=== PATIENT | male | born 1960 | race Caucasian/White ===

== ENCOUNTER 2016-12-21 17:51 | Emergency (ER) | payer BC ==
[~2016-12-21] VITALS: Ht 185.4 cm; Wt 99.3 kg
[2016-12-21 18:44] LABS: BASO # 0.1 10*3/uL (0.0-0.1); BASO % 1.1 % (0.0-1.0); EOS # 0.3 10*3/uL (0.0-0.4); EOS % 6.2 % (1.0-4.0); HEMATOCRIT 35.9 % (42.0-52.0); HEMOGLOBIN 12.5 g/dl (14.0-18.0); LYMPH # 1.2 10*3/uL (1.3-4.4); LYMPH % 24.7 % (27.0-41.0); MEAN CELL VOLUME 90.9 fl (80.0-94.0); MEAN CORPUSCULAR HGB 31.6 pg (27.0-31.0); MEAN CORPUSCULAR HGB CONC 34.8 g/dl (33.0-37.0); MEAN PLATELET VOLUME 10.3 fl (9.6-12.3); MONO # 0.5 10*3/uL (0.1-1.0); MONO % 10.3 % (3.0-9.0); NEUT # 2.7 10*3/uL (2.3-7.9); NEUT % 57.5 % (47.0-73.0); PLATELET COUNT AUTOMATED 200 10*3/uL (130-400); RED BLOOD COUNT 3.95 10*6/uL (4.50-5.90); RED CELL DISTRI WIDTH 12.1 % (0-14.5); WHITE BLOOD COUNT 4.7 10*3/uL (4.8-10.8)
[2016-12-21 18:55] LABS: PROTHROMBIN TIME 10.7 SECONDS (9.0-12.4)
[2016-12-21 19:06] LABS: ALKALINE PHOSPHATASE 85 U/L (45-117); BILIRUBIN, TOTAL 0.5 mg/dl (0.2-1.0); BUN 45 mg/dl (7-24); CARBON DIOXIDE 21 mmol/L (21-32); CHLORIDE 111 mmol/L (98-107); CPK 284 U/L (39-308); EST GLOM FILT AFRICAN AMERICAN 50 ml/min; GLUCOSE 105 mg/dL (65-99); POTASSIUM 4.2 mmol/L (3.5-5.1); SGOT/AST 16 IU/L (3-35); SGPT/ALT 27 U/L (12-78); SODIUM 142 mmol/L (136-145); TOTAL PROTEIN 6.7 gm/dL (6.4-8.2); TROPONIN I 0.022 ng/ml (<0.045)
[2016-12-21 19:07] LABS: C-REACTIVE PROTEIN < 0.29 MG/DL (0-0.3)
[2016-12-21 19:09] LABS: CKMB 13.1 ng/ml (0.5-3.6); MAGNESIUM 0.9 mg/dL (1.5-2.1)
== END 2016-12-21 23:01 | disposition left against medical advice (07) ==
LOC: ED 17:51
PROVIDERS: Emergency Medicine
DX: I48.91 Unspecified atrial fibrillation (principal); F17.200 Nicotine dependence, unspecified, uncomplicated

== ENCOUNTER 2016-12-27 20:57 | Inpatient (IN) | payer BC ==
[~2016-12-27] VITALS: Ht 185.4 cm; Wt 99.4 kg
[2016-12-27] VITALS (10 sets, daily range): BP systolic 132–192; BP diastolic 90–120
--- NOTE | ~2016-12-27 | PR ---
[place], [place] PROGRESS NOTE NAME: PABLO SANCHEZ UNIT #: [id number] ROOM: 521 DOCTOR: ANTONY GARAY MD BIRTHDATE: [birth year] DOS: 12/30/2016 CARDIOLOGY PROGRESS NOTE SUBJECTIVE: The patient was seen at his bedside today on 12/30/2016 for followup of his newly documented atrial fibrillation with rapid ventricular response. He had no family at the bedside today. He tells me that he feels much better today and is very anxious to go home. We were able to get him off of IV diltiazem overnight, but I did have to start him on digoxin to maintain good heart rate control. This morning, his pulse is in the 70s-80s. His blood pressure is controlled at 120/60 and he is saturating 100% on pulse oximetry. PHYSICAL EXAMINATION: VITAL SIGNS: Today, his vital signs are as noted. NECK: Supple. He has no jugular distention. Carotids are full. I heard no bruits. LUNGS: Respirations are unlabored. His chest is clear to auscultation and percussion. He has no presacral edema. HEART: Has an irregularly irregular rhythm without murmurs or gallops. ABDOMEN: Benign. EXTREMITIES: Showed no edema. IMPRESSION: 1. Newly documented atrial fibrillation with rapid ventricular response. 2. CHADS-VASc score of 2 indicating high risk for future cardioembolic events and stroke without anticoagulation. 3. Essential hypertension. 4. Type 2 diabetes mellitus. 5. Hyperlipidemia. 6. Cigarette abuse. 7. Alcohol abuse. PLAN: I think the patient can go home on his current medications including diltiazem, digoxin and metoprolol as currently prescribed. He also will continue rivaroxaban for stroke prophylaxis. He may be able to wean off of clonidine over the next several weeks. I would like him to follow up with us in the office in about 3-4 weeks, and if he continues to be in atrial fibrillation, we probably will arrange for him to have an elective cardioversion at that time. I thank the hospitalist physicians for asking our advice regarding his care. [place], [place] PROGRESS NOTE NAME: PABLO SANCHEZ UNIT #: [id number] ROOM: 521 DOCTOR: ANTONY GARAY MD BIRTHDATE: [birth year] ANTONY GARAY MD CM:PNTRANS [id number] ANTONY GARAY MD 12/31/16 0147 interface
--- NOTE | ~2016-12-27 | PR ---
[place], [place] PROGRESS NOTE NAME: PABLO SANCHEZ [facility] #: [id number] UNIT #: [id number] ROOM: 521 DOCTOR: ANTONY GARAY MD BIRTHDATE: [birth year] DOS: 12/29/2016 SUBJECTIVE: The patient was seen at his bedside today is 12/29/2016, for followup of his newly documented atrial fibrillation with a rapid ventricular response. The patient has been placed on metoprolol 100 mg b.i.d., but still requires 15 mg of diltiazem per hour intravenously to maintain an adequate heart rate. He denies any chest pain or palpitations. He otherwise feels well and wants to go home. PHYSICAL EXAMINATION: VITAL SIGNS: Today, his pulse is 110 and irregularly irregular. Blood pressure is 114/70. He is afebrile. He weighs 99.4 kg and has a body mass index 28.9. NECK: Supple. He has no jugular distention. Carotids are full. I heard no bruits. He had no neck or supraclavicular masses. LUNGS: Respirations were unlabored. His chest was clear. HEART: Had an irregularly irregular rhythm, without murmurs or gallops. ABDOMEN: Benign. EXTREMITIES: Showed no edema. He did have an echocardiogram which showed normal left ventricular size, segmental wall motion and systolic function with moderate concentric left ventricular hypertrophy. Ejection fraction is 60-65%. Diastole could not be assessed. Left atrium was mildly dilated. There was no abnormality of valve function. IMPRESSION: 1. Newly documented atrial fibrillation with rapid ventricular response. 2. CHADS2-VASc score of 2 indicating high risk for future cardioembolic events and stroke without anticoagulation. 3. Essential hypertension. 4. Type 2 diabetes mellitus. 5. Hyperlipidemia. 6. Cigarette abuse. 7. Alcohol abuse. PLAN: We will continue to increase his medications as tolerated and try to wean him off of intravenous diltiazem. If his rate remains hard to control, he may require cardioversion. We will have to consider a stress myocardial perfusion study in the future as well because of his complaints of chest pain; however, would rather not do that while we are still adjusting his medications. He is tolerating anticoagulation therapy. I thank the hospitalist physicians for asking our advice regarding his care. [place], [place] PROGRESS NOTE NAME: PABLO SANCHEZ UNIT #: [id number] ROOM: 521 DOCTOR: ANTONY GARAY MD BIRTHDATE: [birth year] ANTONY GARAY MD CM:PNTRANS [id number] [phone] ANTONY GARAY MD 12/29/162131 interface
--- NOTE | ~2016-12-27 | CON ---
[place], [place] REPORT OF CONSULTATION [id number] UNIT #: [id number] ROOM: [facility] DOCTOR: ANTONY GARAY MD BIRTHDATE: [birth year] DOS: 12/28/2016 REASON FOR CONSULTATION: Rapid irregular heartbeat. HISTORY OF PRESENT ILLNESS: The patient is a 56-year-old man who does have multiple medical problems including hypertension, diabetes and hyperlipidemia. He also smokes half pack of cigarettes a day and drinks alcohol on a daily basis. He states that he has had episodes of irregular heartbeat for at least a few years. He has worn monitors in the past which have been unremarkable. He was seen about a week ago by his primary physician, Dr. Szymanski, who noted that his heart was irregular and an EKG did show that he was in atrial fibrillation. He sent him to the Emergency Room where he was evaluated, but signed out against medical advice. He has continued to have symptoms of palpitations; however, associated with nausea, vomiting and chest discomfort. He therefore came to the Emergency Room and was admitted. Since he has been here, he has demonstrated atrial fibrillation with a rapid ventricular response, which has been responding to intravenous diltiazem and oral beta blockers. His troponin levels have been unremarkable. His electrocardiogram only shows atrial fibrillation and nonspecific ST and T-wave changes. PAST MEDICAL HISTORY: 1. Hypertension, which has been present over 10 years. 2. Type 2 diabetes mellitus. 3. Hyperlipidemia. 4. Daily alcohol use. 5. Cigarette abuse. 6. No previous history of myocardial infarction or stroke. MEDICATIONS: Prior to admission included atorvastatin 20 mg daily, clonidine 0.1 mg 3 times a day, glyburide 10 mg b.i.d., hydrochlorothiazide 50 mg daily, labetalol 300 mg b.i.d., omeprazole 20 mg daily, Pioglitazone 15 mg daily, Sitagliptin with metformin (Janumet) 1000/5 one tablet b.i.d., and verapamil 120 mg daily. ALLERGIES: He has no known drug allergies. FAMILY HISTORY: Positive for atherosclerotic heart disease in his father who had a 4-vessel bypass. REVIEW OF SYSTEMS: The patient denies diplopia or loss of vision. He denies focal weakness. He denies lightheadedness or syncope. Denies orthopnea or PND. Denies fevers, chills, sweats or recent weight change. He denies focal weakness. He has had some nausea and vomiting, but denies hemoptysis or hematemesis. He denies any change in bowel or bladder habits and denies blood in his stool or urine. He denies any skin rashes. He denies any peripheral edema. He denies any hot or swollen joints. He denies polydipsia or polyuria. The remainder of the review of systems is negative except as noted above. SOCIAL HISTORY: The patient is and lives with his . He does smoke half pack of cigarettes a day and drinks several beers on a daily basis. 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 PHYSICAL EXAMINATION: GENERAL: The patient is a well-nourished white male who is awake, alert and oriented. VITAL SIGNS: Pulse is 112 and irregularly irregular. Blood pressure is 134/87. He is afebrile. He weighs 99.4 kilograms with a body mass index 28.9. HEENT: Normocephalic, atraumatic. Extraocular muscles are intact. Sclerae are clear. Pupils are round and reactive to light. The oral mucosa is moist. Tongue is midline. NECK: Supple. He has no jugular distention. Carotids are full. I heard no bruits. He had no neck or supraclavicular masses. No thyromegaly. LUNGS: Respirations are unlabored. His chest is clear to auscultation and percussion. He has no presacral edema or chest wall tenderness. CARDIOVASCULAR: His heart has an irregularly irregular rhythm without murmurs, rubs or gallops. PMI is not displaced. He has no precordial heave, lift or thrill. ABDOMEN: Soft and normally active without masses, organomegaly or bruits. EXTREMITIES: Showed no edema. Peripheral pulses are palpable in the feet. LABORATORY DATA: Electrocardiogram shows atrial fibrillation with a rapid ventricular response. He has nonspecific ST and T-wave changes. TSH is normal. Hemoglobin is 12.3, hematocrit 35.9, white count 7700, platelet count 204,000. INR was 1.0. Sodium is 140, potassium 2.7, BUN 35, creatinine 1.47. Hemoglobin A1c 7.4. Troponin levels have been unremarkable. IMPRESSIONS: 1. Newly documented atrial fibrillation. 2. CHADS-VASc score 2 indicating high risk for future cardioembolic events and stroke without anticoagulation. 3. Essential hypertension. 4. Type 2 diabetes mellitus. 5. Hyperlipidemia. 6. Cigarette abuse. 7. Alcohol abuse. PLAN: The patient was told that he could not continue to consume alcohol since this would increase his bleeding risk and probably increase his risk for atrial fibrillation as well. We will be adjusting his medications to control his rate. After a few weeks if his rate remains hard to control, we can decide whether he should undergo a cardioversion. This may also help with symptoms if he does not convert spontaneously. He did present with some chest discomfort and therefore once his rate has been controlled. We will proceed with a stress myocardial perfusion study. Please see the orders for medications changes. I did discuss with him anticoagulation therapy. I think in the long run, he would do best we can keep him on a direct oral anticoagulant. I would start him on rivaroxaban. [place], [place] REPORT OF CONSULTATION NAME: PABLO SANCHEZ UNIT #: [id number] ROOM: [facility] DOCTOR: ANTONY GARAY MD BIRTHDATE: [birth year] I thank the hospitalist group for asking our advice regarding his management. ANTONY GARAY MD CM:CONSTR:REPORT OF CONSULTATION 1601 12/28/16 [id number] interface
[2016-12-27 21:14] LABS: BASO # 0.1 10*3/uL (0.0-0.1); BASO % 0.9 % (0.0-1.0); EOS # 0.4 10*3/uL (0.0-0.4); EOS % 5.1 % (1.0-4.0); HEMATOCRIT 35.9 % (42.0-52.0); HEMOGLOBIN 12.3 g/dl (14.0-18.0); LYMPH # 1.5 10*3/uL (1.3-4.4); MEAN CELL VOLUME 91.6 fl (80.0-94.0); MEAN CORPUSCULAR HGB 31.4 pg (27.0-31.0); MEAN CORPUSCULAR HGB CONC 34.3 g/dl (33.0-37.0); MONO # 0.7 10*3/uL (0.1-1.0); MONO % 9.1 % (3.0-9.0); NEUT % 65.5 % (47.0-73.0); PLATELET COUNT AUTOMATED 204 10*3/uL (130-400); RED BLOOD COUNT 3.92 10*6/uL (4.50-5.90); RED CELL DISTRI WIDTH 12.5 % (0-14.5); WHITE BLOOD COUNT 7.7 10*3/uL (4.8-10.8)
[2016-12-27 21:24] LABS: PROTHROMBIN TIME 10.7 SECONDS (9.0-12.4)
[2016-12-27 21:31] LABS: ALBUMIN 3.9 gm/dl (3.1-4.5); ALKALINE PHOSPHATASE 88 U/L (45-117); BILIRUBIN, TOTAL 0.6 mg/dl (0.2-1.0); BUN 45 mg/dl (7-24); CARBON DIOXIDE 22 mmol/L (21-32); CHLORIDE 110 mmol/L (98-107); EST GLOM FILT AFRICAN AMERICAN 39 ml/min; GLUCOSE 107 mg/dL (65-99); POTASSIUM 3.9 mmol/L (3.5-5.1); SGOT/AST 14 IU/L (3-35); SGPT/ALT 24 U/L (12-78); SODIUM 140 mmol/L (136-145); TOTAL PROTEIN 7.1 gm/dL (6.4-8.2)
[2016-12-27 21:32] LABS: TROPONIN I < 0.015 ng/ml (<0.045)
[2016-12-27] MEDS ORDERED: PIOGLITAZONE HC15 MG PO (22:46)
[2016-12-27] MEDS ORDERED: OMEPRAZOLE20 M2 PO (22:47)
[2016-12-27] MEDS ORDERED: VERAPAMIL HCL240 M2 PO (22:47)
[2016-12-27] MEDS ORDERED: LABETALOL HCL300 MG PO (22:48)
[2016-12-27] MEDS ORDERED: LIPITOR20 MG PO (22:48)
[2016-12-27 22:49] LABS: ABG BASE EXCESS -4.9 mmol/L (-2.0-2.0); ABG CO2 CONTENT 20.1 mmol/L (23-27); ABG HCO3 19.1 mmol/l (22-26); ARTERIAL BLOOD GAS PH 7.376 (7.35-7.45); ARTERIAL BLOOD GAS PO2 80.3 mmHg (80-90)
[2016-12-27] MEDS ORDERED: CATAPRES-TTS 10.1 MG PO (22:49)
[2016-12-27] MEDS ORDERED: GLYBURIDE5 MG PO (22:49)
[2016-12-27] MEDS ORDERED: HYDROCHLOROTHIA50 M1 PO (22:50)
[2016-12-27] MEDS ORDERED: JANUMET 1000 MG1 TA1 PO (22:50)
[2016-12-28] VITALS (12 sets, daily range): BP systolic 104–182; BP diastolic 65–114
[2016-12-28] MEDS ORDERED: CLONIDINE0.1 MG/21 PO (00:30)
[2016-12-28 03:15] LABS: POTASSIUM 3.7 mmol/L (3.5-5.1)
[2016-12-28 03:20] LABS: FREE T4 1.09 ng/dl (0.76-1.46)
[2016-12-28 03:23] LABS: HEMOGLOBIN A1c 7.4 % (4.8-5.6)
[2016-12-28 03:26] LABS: THYROID STIM HORMONE (HS) 1.7 uIU/ml (0.358-4.75)
[2016-12-29] VITALS (12 sets, daily range): BP systolic 109–153; BP diastolic 62–102
[2016-12-29 05:54] LABS: BASO % 0.7 % (0.0-1.0); EOS # 0.2 10*3/uL (0.0-0.4); EOS % 3.6 % (1.0-4.0); HEMATOCRIT 37.8 % (42.0-52.0); HEMOGLOBIN 13.4 g/dl (14.0-18.0); LYMPH # 0.9 10*3/uL (1.3-4.4); LYMPH % 14.9 % (27.0-41.0); MEAN CELL VOLUME 89.4 fl (80.0-94.0); MEAN CORPUSCULAR HGB 31.7 pg (27.0-31.0); MEAN CORPUSCULAR HGB CONC 35.4 g/dl (33.0-37.0); MEAN PLATELET VOLUME 10.3 fl (9.6-12.3); MONO # 0.6 10*3/uL (0.1-1.0); MONO % 10.6 % (3.0-9.0); PLATELET COUNT AUTOMATED 219 10*3/uL (130-400); RED BLOOD COUNT 4.23 10*6/uL (4.50-5.90); RED CELL DISTRI WIDTH 12.1 % (0-14.5); WHITE BLOOD COUNT 5.8 10*3/uL (4.8-10.8)
[2016-12-29 06:11] LABS: ALBUMIN 3.5 gm/dl (3.1-4.5); ALKALINE PHOSPHATASE 82 U/L (45-117); BILIRUBIN, TOTAL 1.2 mg/dl (0.2-1.0); BUN 20 mg/dl (7-24); CARBON DIOXIDE 25 mmol/L (21-32); CHLORIDE 103 mmol/L (98-107); EST GLOM FILT AFRICAN AMERICAN > 60 ml/min; GLUCOSE 191 mg/dL (65-99); POTASSIUM 3.6 mmol/L (3.5-5.1); SGOT/AST 11 IU/L (3-35); SGPT/ALT 19 U/L (12-78); SODIUM 138 mmol/L (136-145); TOTAL PROTEIN 6.4 gm/dL (6.4-8.2)
[2016-12-29] MEDS ORDERED: METOPROLOL SUC100 M1 PO (09:42)
[2016-12-29] MEDS ORDERED: XARE20MG PO (09:42)
[2016-12-29] MEDS ORDERED: HYDR25T PO (09:42)
[2016-12-30] VITALS: BP 147/88
[2016-12-30 08:00] VITALS: BP 170/96
[2016-12-30 12:00] VITALS: BP 119/61
[2016-12-30] MEDS ORDERED: LANOXIN250 MCG PO (15:53)
[2016-12-30] MEDS ORDERED: DILTIAZEM CD240 MG PO (15:53)
== END 2016-12-30 16:31 | disposition home or self-care (01) | DRG 193 ==
LOC: ED 20:57 → EDHOLD 22:37 → ICCU 22:37 → 5E 12-29 14:44
PROVIDERS: Emergency Medicine Emergency Medical Services; Family Medicine; Internal Medicine
DX: J18.9 Pneumonia, unspecified organism (principal); N17.0 Acute kidney failure with tubular necrosis; I48.91 Unspecified atrial fibrillation; K21.9 Gastro-esophageal reflux disease without esophagitis; E78.4 Other hyperlipidemia; M54.5 Low back pain; G89.29 Other chronic pain; R00.0 Tachycardia, unspecified; E78.00 Pure hypercholesterolemia, unspecified; E78.5 Hyperlipidemia, unspecified; F17.210 Nicotine dependence, cigarettes, uncomplicated; I12.9 Hypertensive chronic kidney disease with stage 1 through stage 4 chronic kidney disease, or unspecified chronic kidney disease; E11.22 Type 2 diabetes mellitus with diabetic chronic kidney disease; N18.9 Chronic kidney disease, unspecified; Z79.899 Other long term (current) drug therapy; Z72.89 Other problems related to lifestyle; Z82.49 Family history of ischemic heart disease and other diseases of the circulatory system; Z83.3 Family history of diabetes mellitus

== ENCOUNTER 2017-07-22 15:57 | Inpatient (IN) | payer BC ==
[~2017-07-22] VITALS: Ht 185.4 cm; Wt 86.8 kg
--- NOTE | ~2017-07-22 | CON ---
[place], [place] REPORT OF CONSULTATION [id number] UNIT #: [id number] ROOM: 403 DOCTOR: ANTONY GARAY MD BIRTHDATE: [birth year] DOS: 07/23/2017 CHIEF COMPLAINT: Abdominal pain. Preoperative assessment prior to cholecystectomy. HISTORY OF PRESENT ILLNESS: The patient is a 57-year-old man who was seen at his bedside today, 07/23/2017, for preoperative assessment. He was initially seen by Cardiology in 12/2016, when he presented with newly documented atrial fibrillation and rapid ventricular response. At the time of that evaluation, he was managed with rate control and anticoagulation. He had been advised to follow up in our office to discuss possible cardioversion and outpatient stress testing, but none of that ever occurred. Despite that, he states he continues to take his medications as prescribed including beta pacheco, diltiazem, digoxin, and apixaban. He states he was doing well until about 2 weeks ago when he suddenly had abdominal pain with nausea and vomiting. The patient has continued to have generalized abdominal pain with poor appetite and significant weight loss. He therefore presented to the hospital. A CT of the abdomen was consistent with acute cholecystitis with possible gangrenous cholecystitis. There is biochemical evidence for pancreatitis as well. We were therefore asked to see the patient to determine his cardiac risk for cholecystectomy or further GI workup. PAST MEDICAL HISTORY: Includes: 1. Hypertension present over 10 years. 2. Type 2 diabetes mellitus. 3. Hyperlipidemia. 4. Daily alcohol use. The patient has been abstinent since he became ill about 2 weeks ago. 5. Cigarette abuse. 6. No previously documented myocardial infarction or stroke. 7. New onset atrial fibrillation with rapid ventricular response documented 12/27/2016. 8. Echocardiogram, 12/28/2016, normal left ventricular size segmental wall motion and overall systolic function with ejection fraction 65%, moderate concentric left ventricular hypertrophy, mildly dilated left atrium, normal right ventricular size and function. No significant valve abnormalities noted. MEDICATIONS: Prior to admission, apixaban 5 mg b.i.d., atorvastatin 20 mg at bedtime, clonidine 0.1 mg q.8 hours, digoxin 250 mcg p.o. daily, diltiazem 240 mg p.o. daily, glyburide 5 mg 2 tablets b.i.d., hydrochlorothiazide 25 mg daily, ibuprofen 800 mg t.i.d. p.r.n., metoprolol 100 mg b.i.d., pioglitazone 45 mg daily, and sitagliptin with metformin b.i.d. ALLERGIES: The patient has no known drug allergies. FAMILY HISTORY: Positive for atherosclerotic heart disease in his father who had a 4-vessel bypass. [place], [place] REPORT OF CONSULTATION NAME: PABLO SANCHEZ UNIT #: [id number] ROOM: 403 DOCTOR: ANTONY GARAY MD BIRTHDATE: [birth year] REVIEW OF SYSTEMS: The patient denies diplopia or loss of vision. He is generally weak since he has been ill. He denies lightheadedness or syncope. He denies orthopnea or PND. He denies fevers or chills. He has had nausea and vomiting with anorexia and significant weight loss. He denies any focal weakness. He denies hemoptysis or hematemesis. He denies any change in bowel or bladder habits and denies blood in his stools or urine. He denies any skin rashes. He denies peripheral edema. He has not had any hot or swollen joints. He denies polydipsia or polyuria. He denies heat or cold intolerance. The remainder of the review of systems is negative except as noted above for his abdominal discomfort. SOCIAL HISTORY: The patient is . He smokes a half pack of cigarettes a day. He drinks several beers daily, but has not had any alcohol for at least 2 weeks. PHYSICAL EXAMINATION: GENERAL: The patient is well-nourished white male who is awake, alert and oriented. He does appear to be uncomfortable and acutely ill. VITAL SIGNS: Pulse is 82 and irregularly irregular. Blood pressure is 188/98. He is afebrile. HEENT: Normocephalic, atraumatic. Extraocular muscles are intact. Sclerae are clear. Pupils are equal, round and react to light. The oral mucosa is moist. Tongue is midline. NECK: Supple. He has no jugular distention or hepatojugular reflux. Carotids are full. I heard no bruits. He had no neck or supraclavicular masses. LUNGS: Respirations are unlabored. His chest is clear with decreased breath sounds at the bases, but no wheezes or rales. CARDIOVASCULAR: His heart has an irregularly irregular rhythm without murmurs or gallops. PMI is not displaced. There is no precordial heave, lift or thrill. ABDOMEN: Hypoactive and soft. There is no rebound. He has tenderness in right upper quadrant. EXTREMITIES: Showed no edema. Peripheral pulses are palpable in the feet. LABORATORY DATA: Electrocardiogram shows atrial fibrillation with a rapid ventricular response. There are nonspecific ST and T-wave changes, especially in the lateral leads which may be related to rate or ischemia. Hemoglobin is 12.8 with hematocrit 37.4. There are 13,800 white cells and 300,000 platelets present. Sodium is 134, potassium 3.4, BUN 22, creatinine 1.11. Glucose on admission was 690, but this morning was 214. Troponin levels have only been checked on one occasion and were normal. Digoxin level was 1.52. IMPRESSION: 1. Acute cholecystitis with probable secondary pancreatitis. 2. Atrial fibrillation with rapid ventricular response, which appears to be coming under control. 3. CHADS-VASc score is 2 indicating a high risk for future cardiac events and stroke if the patient cannot be anticoagulated. 4. Essential hypertension. [place], [place] REPORT OF CONSULTATION [id number] UNIT #: [id number] ROOM: 403 DOCTOR: ANTONY GARAY MD BIRTHDATE: [birth year] 5. Type 2 diabetes mellitus. 6. Cigarette abuse. 7. Hyperlipidemia. 8. Alcohol abuse. PLAN: At this point, the patient does not show signs of an acute coronary event. After his hospitalization last summer, I had intended that he undergo further workup including possible stress testing; however, I think that his acute abdominal problems would supercede any consideration of that. At this point, I think that his risk of an acute cardiac event is low and therefore, I would proceed with whatever testing and/or management strategies would be appropriate for his acute cholecystitis. If the plan is that he should be clinically stabilized and if we have several days between now and when his surgery occurred, we can consider a stress test in that time frame, but I would not push it. Since it does not appear that he is going to have surgery immediately, I did resume his apixaban. I also placed him back on metoprolol and digoxin. We will continue to monitor his heart rate and blood pressure and adjust medications as needed. I thank the hospitalist physicians for asking our advice regarding his care. ANTONY GARAY MD CM:CONSTR:REPORT OF CONSULTATION 1553 07/23/172037 interface
[~2017-07-22 15:57] MED LIST: CATAPRES-TTS 10.1 MG PO; CLONIDINE0.1 MG/21 PO; DILTIAZEM CD240 MG PO; GLYBURIDE5 MG PO; HYDR25T PO; HYDROCHLOROTHIA50 M1 PO; JANUMET 1000 MG1 TA1 PO; LABETALOL HCL300 MG PO; LANOXIN250 MCG PO; LIPITOR20 MG PO; METOPROLOL SUC100 M1 PO; OMEPRAZOLE20 M2 PO; PIOGLITAZONE HC15 MG PO; VERAPAMIL HCL240 M2 PO; XARE20MG PO
[2017-07-22 16:04] VITALS: BP 109/79
[2017-07-22 16:37] LABS: BILIRUBIN 2+ (NEGATIVE); BLOOD 2+ (NEGATIVE); CLARITY SL CLOUDY (CLEAR); COLOR YELLOW (YELLOW); GLUCOSE 3+ (NEGATIVE); KETONE TRACE (NEGATIVE); LEUKO ESTERASE NEGATIVE (NEGATIVE); NITRITE NEGATIVE (NEGATIVE); PH 5.5 (5.0-9.0)
[2017-07-22 16:48] LABS: BASO # 0.1 10*3/uL (0.0-0.1); BASO % 0.3 % (0.0-1.0); EOS # 0.1 10*3/uL (0.0-0.4); EOS % 0.7 % (1.0-4.0); HEMATOCRIT 42.4 % (42.0-52.0); HEMOGLOBIN 14.6 g/dl (14.0-18.0); LYMPH # 0.9 10*3/uL (1.3-4.4); LYMPH % 5.5 % (27.0-41.0); MEAN CELL VOLUME 86.2 fl (80.0-94.0); MEAN CORPUSCULAR HGB 29.7 pg (27.0-31.0); MEAN CORPUSCULAR HGB CONC 34.4 g/dl (33.0-37.0); MEAN PLATELET VOLUME 11.4 fl (9.6-12.3); MONO % 6.3 % (3.0-9.0); NEUT # 13.4 10*3/uL (2.3-7.9); NEUT % 85.9 % (47.0-73.0); PLATELET COUNT AUTOMATED 406 10*3/uL (130-400); RED BLOOD COUNT 4.92 10*6/uL (4.50-5.90); RED CELL DISTRI WIDTH 11.9 % (0-14.5); WHITE BLOOD COUNT 15.6 10*3/uL (4.8-10.8)
[2017-07-22 17:01] LABS: BACTERIA TRACE; EPITHELIAL CELLS 0-2; RBC 51-100 rbc/hpf (0-2); WBC 0-2 wbc/hpf (0-5)
[2017-07-22 17:09] LABS: ALBUMIN 2.2 gm/dl (3.1-4.5); CREATININE 1.67 mg/dL (0.70-1.30); POTASSIUM 4.8 mmol/L (3.5-5.1); TOTAL PROTEIN 7.1 gm/dL (6.4-8.2)
[2017-07-22] MEDS ORDERED: JANUMET 50-1,01 EACH PO (17:41)
[2017-07-22] MEDS ORDERED: Motrin,Rufen800 MG PO (17:43)
[2017-07-22] MEDS ORDERED: ELIQUIS5 M1 PO (17:45)
[2017-07-22 19:17] LABS: ACT PARTIAL THROMBO TIME 27.9 SECONDS (20.8-31.5)
[2017-07-22 20:00] VITALS: BP 131/80
[2017-07-23] VITALS: BP 131/86
[2017-07-23 06:54] LABS: BASO % 0.3 % (0.0-1.0); EOS # 0.1 10*3/uL (0.0-0.4); EOS % 0.9 % (1.0-4.0); HEMATOCRIT 37.4 % (42.0-52.0); HEMOGLOBIN 12.8 g/dl (14.0-18.0); LYMPH # 0.8 10*3/uL (1.3-4.4); LYMPH % 5.7 % (27.0-41.0); MEAN CELL VOLUME 87.8 fl (80.0-94.0); MEAN CORPUSCULAR HGB CONC 34.2 g/dl (33.0-37.0); MONO # 0.9 10*3/uL (0.1-1.0); MONO % 6.7 % (3.0-9.0); NEUT # 11.7 10*3/uL (2.3-7.9); PLATELET COUNT AUTOMATED 300 10*3/uL (130-400); RED BLOOD COUNT 4.26 10*6/uL (4.50-5.90); WHITE BLOOD COUNT 13.8 10*3/uL (4.8-10.8)
[2017-07-23 07:00] LABS: ACT PARTIAL THROMBO TIME 26.4 SECONDS (20.8-31.5)
[2017-07-23 07:33] LABS: CHLORIDE 98 mmol/L (98-107); SODIUM 133 mmol/L (136-145)
[2017-07-23 07:44] LABS: VITAMIN D, 25-HYDROXY 14.1 ng/mL (30-100)
[2017-07-23 08:00] VITALS: BP 170/87
[2017-07-23 08:04] LABS: BUN 26 mg/dl (7-24); CHOLESTEROL 99 mg/dL (<200); CREATININE 1.17 mg/dL (0.70-1.30); HDL CHOLESTEROL 16 mg/dl (40-60); LDL CHOLESTEROL 39 mg/dL (9-159); LIPASE 712 U/L (73-393); PHOSPHOROUS 2.7 mg/dL (2.5-4.9); TRIGLYCERIDES 219 mg/dl (<150); VLDL CHOLESTEROL 44 mg/dL (6-40)
[2017-07-23 12:00] VITALS: BP 188/98
[2017-07-23 12:59] LABS: ALBUMIN 2.2 gm/dl (3.1-4.5); BUN 22 mg/dl (7-24); CHLORIDE 99 mmol/L (98-107); CREATININE 1.11 mg/dL (0.70-1.30); POTASSIUM 3.4 mmol/L (3.5-5.1); SGOT/AST 194 IU/L (3-35); SGPT/ALT 315 U/L (12-78); SODIUM 134 mmol/L (136-145); TOTAL PROTEIN 6.8 gm/dL (6.4-8.2)
[2017-07-23 13:03] LABS: ALKALINE PHOSPHATASE 731 U/L (45-117)
[2017-07-23] MEDS ORDERED: ACTOS45 M1 PO (13:03)
[2017-07-23 16:00] VITALS: BP 154/89
[2017-07-23 20:00] VITALS: BP 178/85
[2017-07-24] VITALS (9 sets, daily range): BP systolic 120–185; BP diastolic 69–100
[2017-07-24 06:37] LABS: BASO # 0.1 10*3/uL (0.0-0.1); BASO % 0.4 % (0.0-1.0); EOS # 0.1 10*3/uL (0.0-0.4); EOS % 0.7 % (1.0-4.0); HEMATOCRIT 39.4 % (42.0-52.0); HEMOGLOBIN 13.2 g/dl (14.0-18.0); LYMPH # 0.9 10*3/uL (1.3-4.4); LYMPH % 6.3 % (27.0-41.0); MEAN CELL VOLUME 87.4 fl (80.0-94.0); MEAN CORPUSCULAR HGB 29.3 pg (27.0-31.0); MEAN CORPUSCULAR HGB CONC 33.5 g/dl (33.0-37.0); MEAN PLATELET VOLUME 10.7 fl (9.6-12.3); MONO # 1.1 10*3/uL (0.1-1.0); MONO % 7.9 % (3.0-9.0); NEUT # 11.9 10*3/uL (2.3-7.9); NEUT % 83.2 % (47.0-73.0); PLATELET COUNT AUTOMATED 300 10*3/uL (130-400); RED BLOOD COUNT 4.51 10*6/uL (4.50-5.90); RED CELL DISTRI WIDTH 11.9 % (0-14.5); WHITE BLOOD COUNT 14.3 10*3/uL (4.8-10.8)
[2017-07-24 06:40] LABS: CHLORIDE 102 mmol/L (98-107); POTASSIUM 3.7 mmol/L (3.5-5.1); SODIUM 136 mmol/L (136-145)
[2017-07-24 06:49] LABS: ALBUMIN 1.8 gm/dl (3.1-4.5); ALKALINE PHOSPHATASE 596 U/L (45-117); BILIRUBIN, DIRECT 1.3 mg/dL (0.0-0.2); BUN 16 mg/dl (7-24); CREATININE 0.79 mg/dL (0.70-1.30); LIPASE 378 U/L (73-393); PHOSPHOROUS 2.3 mg/dL (2.5-4.9); SGOT/AST 90 IU/L (3-35); SGPT/ALT 210 U/L (12-78); TOTAL PROTEIN 5.8 gm/dL (6.4-8.2)
[2017-07-24 12:53] LABS: ABG HCO3 8.2 mmol/l (22-26); ABG O2 SATURATION 97.6 % (95-97); ARTERIAL BLOOD GAS PCO2 17.7 mmHg (35-45); ARTERIAL BLOOD GAS PH 7.292 (7.35-7.45)
[2017-07-24 12:54] LABS: ABG BASE EXCESS -16.4 mmol/L (-2.0-2.0)
[2017-07-24 13:19] LABS: HEMOGLOBIN 14.3 g/dl (14.0-18.0); MEAN CELL VOLUME 90.3 fl (80.0-94.0); MEAN CORPUSCULAR HGB 29.4 pg (27.0-31.0); MEAN CORPUSCULAR HGB CONC 32.5 g/dl (33.0-37.0); MEAN PLATELET VOLUME 10.8 fl (9.6-12.3); RED BLOOD COUNT 4.87 10*6/uL (4.50-5.90); RED CELL DISTRI WIDTH 12.1 % (0-14.5); WHITE BLOOD COUNT 19.1 10*3/uL (4.8-10.8)
[2017-07-24 13:20] LABS: PLATELET COUNT AUTOMATED 472 10*3/uL (130-400)
[2017-07-24 13:38] LABS: CREATININE 1.48 mg/dL (0.70-1.30); PHOSPHOROUS 2.8 mg/dL (2.5-4.9); POTASSIUM 3.6 mmol/L (3.5-5.1); TOTAL PROTEIN 6.7 gm/dL (6.4-8.2); TROPONIN I 0.031 ng/ml (<0.045)
[2017-07-24 13:41] LABS: TOTAL CELLS COUNTED 100 #CELLS
[2017-07-24 13:42] LABS: POLYCHROMASIA SLIGHT
[2017-07-24 13:43] LABS: PLATELET SUFFICIENCY HIGH (NORMAL); ROULEAUX SLIGHT
[2017-07-24] MEDS ORDERED: VITAMIN D-32000 UNIT PO (13:48)
[2017-07-24] MEDS ORDERED: METOPROLOL SUCC25 M2 PO (13:48)
[2017-07-25 07:04] LABS: HEPATITIS B SURFACE AG Negative (Negative); HEPATITIS C VIRUS ANTIBODY 0.2 s/co (0.0-0.9)
== END 2017-07-24 14:50 | disposition short-term general hospital (02) | DRG 871 ==
LOC: ED 15:57 → 4E 18:12 → EDHOLD 18:12 → 4E 18:19 → ICCU 07-24 12:35 → 4E 07-24 12:35 → ICCU 07-24 14:50
PROVIDERS: Emergency Medicine; Internal Medicine; Nurse Practitioner Family; Surgery
PROC: 5A09357 Assistance with Respiratory Ventilation, Less than 24 Consecutive Hours, Continuous Positive Airway Pressure (ICD-10-PCS; principal; 2017-07-24)
DX: A41.9 Sepsis, unspecified organism (principal); K85.90 Acute pancreatitis without necrosis or infection, unspecified; J96.01 Acute respiratory failure with hypoxia; N17.0 Acute kidney failure with tubular necrosis; E43 Unspecified severe protein-calorie malnutrition; D68.9 Coagulation defect, unspecified; E87.2 Acidosis; K80.00 Calculus of gallbladder with acute cholecystitis without obstruction; E11.65 Type 2 diabetes mellitus with hyperglycemia; I50.32 Chronic diastolic (congestive) heart failure; E87.1 Hypo-osmolality and hyponatremia; I11.0 Hypertensive heart disease with heart failure; E86.0 Dehydration; R65.20 Severe sepsis without septic shock; E66.3 Overweight; R74.0 Nonspecific elevation of levels of transaminase and lactic acid dehydrogenase [LDH]; E80.6 Other disorders of bilirubin metabolism; R74.8 Abnormal levels of other serum enzymes; K59.00 Constipation, unspecified; D64.9 Anemia, unspecified; E87.8 Other disorders of electrolyte and fluid balance, not elsewhere classified; R81 Glycosuria; R82.2 Biliuria; R31.29 Other microscopic hematuria; E55.9 Vitamin D deficiency, unspecified; K21.9 Gastro-esophageal reflux disease without esophagitis; E78.5 Hyperlipidemia, unspecified; G89.29 Other chronic pain; M54.9 Dorsalgia, unspecified; F17.210 Nicotine dependence, cigarettes, uncomplicated; I48.2 Chronic atrial fibrillation; D47.3 Essential (hemorrhagic) thrombocythemia; F10.10 Alcohol abuse, uncomplicated; Y90.9 Presence of alcohol in blood, level not specified; Z79.01 Long term (current) use of anticoagulants; Z79.1 Long term (current) use of non-steroidal anti-inflammatories (NSAID); Z82.49 Family history of ischemic heart disease and other diseases of the circulatory system; Z83.3 Family history of diabetes mellitus; Z68.25 Body mass index [BMI] 25.0-25.9, adult

== ENCOUNTER 2020-09-09 20:55 | Inpatient (IN) | payer BC ==
[~2020-09-09] VITALS: Ht 185.4 cm
[2020-09-09] VITALS (8 sets, daily range): BP systolic 177–198; BP diastolic 11–121
[~2020-09-09 20:55] MED LIST changes: +ACTOS45 M1 PO; +ELIQUIS5 M1 PO; +JANUMET 50-1,01 EACH PO; +METOPROLOL SUCC25 M2 PO; +Motrin,Rufen800 MG PO; +VITAMIN D-32000 UNIT PO
[2020-09-09 21:48] LABS: BASO % 0.6 % (0.0-1.0); EOS # 0.2 10*3/uL (0.0-0.4); EOS % 2.9 % (1.0-4.0); HEMATOCRIT 33.8 % (42.0-52.0); LYMPH % 13.9 % (27.0-41.0); MEAN CORPUSCULAR HGB 26.9 pg (27.0-31.0); MEAN CORPUSCULAR HGB CONC 31.1 g/dl (33.0-37.0); MONO # 0.6 10*3/uL (0.1-1.0); MONO % 8.4 % (3.0-9.0); NEUT # 5.1 10*3/uL (2.3-7.9); NEUT % 73.8 % (47.0-73.0); PLATELET COUNT AUTOMATED 310 10*3/uL (130-400); RED BLOOD COUNT 3.91 10*6/uL (4.50-5.90); RED CELL DISTRI WIDTH 13.4 % (0-14.5); WHITE BLOOD COUNT 6.9 10*3/uL (4.8-10.8)
[2020-09-09 21:51] LABS: MEAN CELL VOLUME 86.4 fl (80.0-94.0)
[2020-09-09 22:00] LABS: ACT PARTIAL THROMBO TIME 47.8 SECONDS (20.0-32.1)
[2020-09-09 22:06] LABS: ALBUMIN 2.6 gm/dl (3.1-4.5); CREATININE 5.11 mg/dL (0.70-1.30); TOTAL PROTEIN 6.8 gm/dL (6.4-8.2)
[2020-09-09 22:12] LABS: TROPONIN I 0.098 ng/ml (<0.045)
[2020-09-10] VITALS (11 sets, daily range): BP systolic 156–196; BP diastolic 82–128
[2020-09-10 05:24] LABS: ALBUMIN 2.1 gm/dl (3.1-4.5); CREATININE 4.95 mg/dL (0.70-1.30); POTASSIUM 3.8 mmol/L (3.5-5.1); TOTAL PROTEIN 5.7 gm/dL (6.4-8.2)
[2020-09-10 06:15] LABS: BASO % 0.5 % (0.0-1.0); EOS # 0.2 10*3/uL (0.0-0.4); EOS % 2.2 % (1.0-4.0); HEMATOCRIT 29.7 % (42.0-52.0); LYMPH # 0.6 10*3/uL (1.3-4.4); LYMPH % 7.4 % (27.0-41.0); MEAN CELL VOLUME 85.8 fl (80.0-94.0); MEAN CORPUSCULAR HGB 26.9 pg (27.0-31.0); MEAN CORPUSCULAR HGB CONC 31.3 g/dl (33.0-37.0); MEAN PLATELET VOLUME 10.8 fl (9.6-12.3); MONO # 0.6 10*3/uL (0.1-1.0); MONO % 7.6 % (3.0-9.0); NEUT # 6.7 10*3/uL (2.3-7.9); NEUT % 82.1 % (47.0-73.0); PLATELET COUNT AUTOMATED 253 10*3/uL (130-400); RED BLOOD COUNT 3.46 10*6/uL (4.50-5.90); RED CELL DISTRI WIDTH 13.2 % (0-14.5); WHITE BLOOD COUNT 8.2 10*3/uL (4.8-10.8)
[2020-09-10] MEDS ORDERED: OMEPRAZOLE20 M2 PO (10:29)
[2020-09-10] MEDS ORDERED: DIGOX125 MCG PO (10:32)
[2020-09-10] MEDS ORDERED: METOPROLOL SUC100 M1 PO (10:33)
[2020-09-10] MEDS ORDERED: LASIX20 MG PO (10:41)
[2020-09-10] MEDS ORDERED: KLOR-CON M1010 ME1 PO (10:41)
[2020-09-10 10:50] LABS: BILIRUBIN Negative (Negative); BLOOD 1+ (Negative); CLARITY Clear (Clear); COLOR Yellow (Yellow); GLUCOSE 2+ (Negative); KETONE Negative (Negative); LEUKO ESTERASE Negative (Negative); NITRITE Negative (Negative); UROBILINOGEN 0.2 E.U./dl (0.0-1.0)
[2020-09-10 10:59] LABS: BACTERIA TRACE; EPITHELIAL CELLS 0-2; URINE CREATININE RANDOM 26.4 mg/dL; WBC 0-2 wbc/hpf (0-5)
[2020-09-11 06:12] LABS: ALBUMIN 1.9 gm/dl (3.1-4.5); ALKALINE PHOSPHATASE 145 U/L (45-117); BASO % 0.6 % (0.0-1.0); BUN 69 mg/dl (7-24); CHLORIDE 107 mmol/L (98-107); CREATININE 4.85 mg/dL (0.70-1.30); EOS # 0.2 10*3/uL (0.0-0.4); EOS % 2.7 % (1.0-4.0); HEMATOCRIT 30.1 % (42.0-52.0); LYMPH # 0.8 10*3/uL (1.3-4.4); LYMPH % 11.2 % (27.0-41.0); MEAN CELL VOLUME 85.5 fl (80.0-94.0); MEAN CORPUSCULAR HGB CONC 31.6 g/dl (33.0-37.0); MEAN PLATELET VOLUME 10.8 fl (9.6-12.3); MONO # 0.6 10*3/uL (0.1-1.0); MONO % 8.6 % (3.0-9.0); NEUT # 5.2 10*3/uL (2.3-7.9); NEUT % 76.6 % (47.0-73.0); PLATELET COUNT AUTOMATED 258 10*3/uL (130-400); POTASSIUM 3.9 mmol/L (3.5-5.1); RED BLOOD COUNT 3.52 10*6/uL (4.50-5.90); RED CELL DISTRI WIDTH 13.2 % (0-14.5); SGPT/ALT 11 U/L (12-78); SODIUM 137 mmol/L (136-145); TOTAL PROTEIN 5.4 gm/dL (6.4-8.2); WHITE BLOOD COUNT 6.7 10*3/uL (4.8-10.8)
[2020-09-11 06:16] LABS: SGOT/AST < 3 IU/L (3-35)
[2020-09-11 08:00] VITALS: BP 176/88
[2020-09-11 12:00] VITALS: BP 140/81
[2020-09-11 16:00] VITALS: BP 165/104
[2020-09-11 17:03] LABS: PTH INTACT 380.8 pg/mL (18.5-88.0); VITAMIN D, 25-HYDROXY 10.4 ng/mL (30-100)
[2020-09-11 20:00] VITALS: BP 148/88
[2020-09-12] VITALS: BP 172/88
[2020-09-12 06:07] LABS: HEP B CORE AB, IGM Negative (Negative); HEPATITIS B SURFACE AG Negative (Negative); HEPATITIS C VIRUS ANTIBODY <0.1 s/co (0.0-0.9)
[2020-09-12 06:37] LABS: ALBUMIN 1.9 gm/dl (3.1-4.5); CREATININE 4.77 mg/dL (0.70-1.30); POTASSIUM 4.1 mmol/L (3.5-5.1)
[2020-09-12 08:08] LABS: COMPLEMENT C4 32 mg/dL (12-38)
[2020-09-12 09:01] VITALS: BP 180/90
[2020-09-12 12:00] VITALS: BP 163/93
[2020-09-12 14:09] LABS: FREE LAMBDA LIGHT CHAINS 66.3 mg/L (5.7-26.3); KAPPA/LAMBDA RATIO 1.54 (0.26-1.65)
[2020-09-12 16:00] VITALS: BP 162/87
[2020-09-12 20:00] VITALS: BP 135/60; BP 150/82
[2020-09-13 06:16] LABS: BASO % 0.5 % (0.0-1.0); EOS # 0.2 10*3/uL (0.0-0.4); EOS % 3.4 % (1.0-4.0); HEMATOCRIT 28.3 % (42.0-52.0); LYMPH # 0.9 10*3/uL (1.3-4.4); LYMPH % 13.9 % (27.0-41.0); MEAN CORPUSCULAR HGB 27.4 pg (27.0-31.0); MEAN CORPUSCULAR HGB CONC 31.8 g/dl (33.0-37.0); MEAN PLATELET VOLUME 10.1 fl (9.6-12.3); MONO # 0.7 10*3/uL (0.1-1.0); MONO % 10.6 % (3.0-9.0); NEUT # 4.5 10*3/uL (2.3-7.9); NEUT % 71.1 % (47.0-73.0); PLATELET COUNT AUTOMATED 243 10*3/uL (130-400); RED BLOOD COUNT 3.29 10*6/uL (4.50-5.90); RED CELL DISTRI WIDTH 13.2 % (0-14.5); WHITE BLOOD COUNT 6.3 10*3/uL (4.8-10.8)
[2020-09-13 06:31] LABS: ALBUMIN 1.8 gm/dl (3.1-4.5); CREATININE 4.87 mg/dL (0.70-1.30); POTASSIUM 4.1 mmol/L (3.5-5.1)
[2020-09-13 08:00] VITALS: BP 176/108
[2020-09-13 12:00] VITALS: BP 155/88
[2020-09-13 16:08] VITALS: BP 137/76
[2020-09-13 20:10] VITALS: BP 149/80
[2020-09-14] VITALS: BP 138/89
[2020-09-14 06:44] LABS: CREATININE 5.17 mg/dL (0.70-1.30); POTASSIUM 3.6 mmol/L (3.5-5.1)
[2020-09-14 08:00] VITALS: BP 151/97
[2020-09-14 11:06] LABS: GLOMERULAR BASEMENT AB 4 units (0-20)
[2020-09-14 12:00] VITALS: BP 156/92
[2020-09-14 14:07] LABS: A/G RATIO 0.8 (0.7-1.7); ALBUMIN 2.2 g/dL (2.9-4.4); ALPHA-1-GLOBULIN 0.3 g/dL (0.0-0.4); ALPHA-2-GLOBULIN 1.1 g/dL (0.4-1.0); BETA GLOBULIN 0.9 g/dL (0.7-1.3); GAMMA GLOBULIN 0.6 g/dL (0.4-1.8); GLOBULIN, TOTAL 2.9 g/dL (2.2-3.9); M-SPIKE Not Observed g/dL (Not Observed); TOTAL PROTEIN, SERUM 5.1 g/dL (6.0-8.5)
[2020-09-14 16:00] VITALS: BP 156/74
[2020-09-14 18:06] LABS: ATYPICAL PANCA <1:20 titer (Neg:<1:20); CYTOPLASMIC (C-ANCA) <1:20 titer (Neg:<1:20)
[2020-09-15] VITALS: BP 136/64
[2020-09-15 06:00] VITALS: BP 143/73
[2020-09-15 07:15] LABS: CREATININE 5.39 mg/dL (0.70-1.30); POTASSIUM 4.1 mmol/L (3.5-5.1)
[2020-09-15 08:00] VITALS: BP 154/86
[2020-09-15 12:00] VITALS: BP 164/90
[2020-09-15] MEDS ORDERED: METOPROLOL SUCC25 M2 PO (14:55)
[2020-09-15] MEDS ORDERED: 'CLONIDINE0.1 MG PO (14:55)
[2020-09-15] MEDS ORDERED: Humalog SQ (14:57)
[2020-09-15] MEDS ORDERED: LANTUS SOL100 UNIT/1 SC (14:57)
[2020-09-15 16:00] VITALS: BP 167/94
[2020-09-15 20:00] VITALS: BP 147/98
[2020-09-16] VITALS (9 sets, daily range): BP systolic 140–193; BP diastolic 80–116
[2020-09-16] MEDS ORDERED: HUMALOG100 UNIT/1 SC (12:01)
[2020-09-16 16:09] LABS: ALBUMIN, URINE RANDOM 57.4 % (.); ALPHA-1-GLOBULIN, URINE 9.6 % (.); ALPHA-2-GLOBULIN, URINE 9.2 % (.); GAMMA GLOBULIN, URINE 10.7 % (.); M-SPIKE % Not Observed % (Not Observed); PROTEIN,TOTAL - URINE RANDOM 885.8 mg/dL (Not Estab.)
[2020-09-17 08:08] LABS: APTT 37.3 sec (22.9-30.2)
[2020-09-17 15:07] LABS: APTT 1:1 NP INCUB MIX CTL 33.7 sec (22.9-30.2); APTT 1:1 NP MIX, 60 MIN, INC 33.4 sec (22.9-30.2)
== END 2020-09-16 13:40 | disposition home or self-care (01) | DRG 871 ==
LOC: ED 20:55 → EDHOLD 09-10 01:21 → 4E 09-10 01:21
PROVIDERS: Hospitalist; Internal Medicine; Internal Medicine Nephrology; Radiology Diagnostic Radiology; Student in an Organized Health Care Education/Training Program; ADMIT Internal Medicine; ATTEND Internal Medicine
PROC: 0TB03ZX Excision of Right Kidney, Percutaneous Approach, Diagnostic (ICD-10-PCS; principal; 2020-09-16)
DX: A41.9 Sepsis, unspecified organism (principal); I50.33 Acute on chronic diastolic (congestive) heart failure; N17.0 Acute kidney failure with tubular necrosis; J15.6 Pneumonia due to other Gram-negative bacteria; I16.1 Hypertensive emergency; E44.0 Moderate protein-calorie malnutrition; I13.0 Hypertensive heart and chronic kidney disease with heart failure and stage 1 through stage 4 chronic kidney disease, or unspecified chronic kidney disease; I48.21 Permanent atrial fibrillation; K21.9 Gastro-esophageal reflux disease without esophagitis; E11.22 Type 2 diabetes mellitus with diabetic chronic kidney disease; N18.9 Chronic kidney disease, unspecified; G89.29 Other chronic pain; E83.51 Hypocalcemia; R77.8 Other specified abnormalities of plasma proteins; M54.9 Dorsalgia, unspecified; R65.20 Severe sepsis without septic shock; D64.9 Anemia, unspecified; E11.65 Type 2 diabetes mellitus with hyperglycemia; F17.210 Nicotine dependence, cigarettes, uncomplicated; E11.69 Type 2 diabetes mellitus with other specified complication; E78.5 Hyperlipidemia, unspecified; F10.120 Alcohol abuse with intoxication, uncomplicated; Y90.9 Presence of alcohol in blood, level not specified; Z68.28 Body mass index [BMI] 28.0-28.9, adult; Z83.3 Family history of diabetes mellitus; Z82.49 Family history of ischemic heart disease and other diseases of the circulatory system; Z79.01 Long term (current) use of anticoagulants; Z90.49 Acquired absence of other specified parts of digestive tract; Z79.899 Other long term (current) drug therapy; Z71.6 Tobacco abuse counseling; Z20.822 Contact with and (suspected) exposure to COVID-19

== ENCOUNTER → 2020-11-23 | Outpatient (CLI) | payer BC ==
[~2020-11-23] MED LIST changes: +'CLONIDINE0.1 MG PO; +DIGOX125 MCG PO; +HUMALOG100 UNIT/1 SC; +Humalog SQ; +KLOR-CON M1010 ME1 PO; +LANTUS SOL100 UNIT/1 SC; +LASIX20 MG PO
== END | disposition home or self-care (01) ==
LOC: US 14:55
PROVIDERS: ATTEND Physician Assistant
DX: N17.9 Acute kidney failure, unspecified (principal); I10 Essential (primary) hypertension; I48.0 Paroxysmal atrial fibrillation; M79.89 Other specified soft tissue disorders; E11.9 Type 2 diabetes mellitus without complications; F17.200 Nicotine dependence, unspecified, uncomplicated